=== PATIENT | female | born 1975 | race Two or more races ===

== ENCOUNTER 2022-06-01 20:18 | Inpatient (IN) | payer OTHER ==
[2022-06-01 20:40] VITALS: BMI 16.8
[2022-06-01] MEDS ORDERED: ONDANSETRON *ODT* 4 MG TABLET SL PRN (22:25)
[2022-06-01] MEDS ORDERED: MAGNESIUM HYDROX 2400MG/30ML ORAL SUSPENSION 30 ML CUP PO PRN (22:25)
[2022-06-01] MEDS ORDERED: LOPERAMIDE HCL 2 MG CAPSULE PO PRN (22:25)
[2022-06-01] MEDS ORDERED: guaiFENesin 600 MG TABLET.ER (FP) PO PRN (22:25)
[2022-06-01] MEDS ORDERED: BISMUTH SUBSALICYLATE 524 MG/30 ML PO PRN (22:25)
[2022-06-01] MEDS ORDERED: METHOCARBAMOL 500 MG TABLET PO PRN (22:25)
[2022-06-01] MEDS ORDERED: IBUPROFEN 400 MG TABLET (FP) PO PRN (22:25)
[2022-06-01] MEDS ORDERED: ACETAMINOPHEN 325 MG TABLET (FP) PO PRN (22:25)
[2022-06-01] MEDS ORDERED: NICOTINE 10 MG CARTRIDGE (INHALER) IH PRN (22:25)
[2022-06-01] MEDS ORDERED: IBUPROFEN 600 MG TABLET (FP) PO PRN (22:25)
[2022-06-01] MEDS ORDERED: NALOXONE HCL (KLOXXADO) 8 MG SPRAY NS PRN (22:25)
[2022-06-01] MEDS ORDERED: BENZOCAINE/MENTHOL (CHLORASEPTIC ) LOZENGE MM PRN (22:25)
[2022-06-01] MEDS ORDERED: DICYCLOMINE HCL 10 MG CAPSULE PO PRN (22:25)
[2022-06-01] MEDS ORDERED: POLYETHYLENE GLYCOL (HEALTHYLAX) 3350 17 GM PACKET PO PRN (22:25)
[2022-06-01] MEDS ORDERED: BENZONATATE 200 MG CAPSULE PO PRN (22:25)
[2022-06-01] MEDS ORDERED: MAG HYDROX/AL HYDROX/SIMETH 30 ML UNIT-DOSE CUP PO PRN (22:25)
[2022-06-01] MEDS ORDERED: NALOXONE HCL 0.4 MG/ML VIAL IM PRN (22:25)
[2022-06-01] MEDS ORDERED: LORazepam 1 MG TABLET PO PRN (22:29)
[2022-06-01] MEDS ORDERED: LORazepam 2 MG TABLET ONE (23:06)
[2022-06-01] MEDS: LORazepam 2 MG TABLET PO SCH (23:12)
[2022-06-02] MEDS: LORazepam 2 MG TABLET PO SCH ×4 (06:21→22:11)
[2022-06-02] MEDS: PRENATAL VITAMINS W/ FOLIC ACID TABLET (FP) PO SCH (10:09)
[2022-06-02] MEDS: NICOTINE 14 MG/24 HOURS TOPICAL PATCH TD SCH (10:10)
[2022-06-02 11:17] LABS: ALBUMIN 3.4 g/dl (3.4-5.0); CALCIUM 9.6 mg/dL (8.5-10.1)
[2022-06-02 11:21] LABS: CREATININE 0.5 mg/dL (0.55-1.3); HEMATOCRIT 39.7 % (32.4-45.2); HEMOGLOBIN 13.5 GM/dL (10.7-15.3); MCH 30.7 pg (25.7-33.7); MEAN CELL VOLUME 90.3 fl (80-96); MEAN PLT VOLUME 8.9 fl (7.5-11.1); PLATELET COUNT 247 10^3/uL (134-434); WHITE BLOOD COUNT 5.1 K/mm3 (4.0-10.0)
[2022-06-02 11:22] LABS: BILIRUBIN,TOTAL 1.1 mg/dL (0.2-1); TOT PROT 7.4 g/dl (6.4-8.2)
[2022-06-02] MEDS ORDERED: THIAMINE HCL 100 MG TABLET (FP) PO SCH (22:00)
[2022-06-02] MEDS ORDERED: MELATONIN 5 MG TABLETS PO SCH (22:00)
[2022-06-03] MEDS: LORazepam 1 MG TABLET PO SCH ×2 (05:39→10:49)
[2022-06-03 08:48] VITALS: RESP 18
[2022-06-03] MEDS: NICOTINE 14 MG/24 HOURS TOPICAL PATCH TD SCH (10:50)
[2022-06-03] MEDS: PRENATAL VITAMINS W/ FOLIC ACID TABLET (FP) PO SCH (10:50)
[2022-06-03 12:09] VITALS: BP 128/84; PULSE 86; TEMP 97.7
[2022-06-04] MEDS ORDERED: LORazepam 0.5 MG TABLET PO PRN
[2022-06-04] MEDS ORDERED: LORazepam 0.5 MG TABLET PO SCH (05:00)
[2022-06-05] MEDS ORDERED: LORazepam 0.5 MG TABLET PO ONE (05:00)
== END 2022-06-03 12:00 | disposition left against medical advice (07) | DRG 770 ==
LOC: YASAS 20:18 → Y3N 22:46
PROVIDERS: ADMIT Allergy & Immunology; ATTEND Surgery
PROC: HZ2ZZZZ Detoxification Services for Substance Abuse Treatment (ICD-10-PCS; principal; 2022-06-01)
DX: F10.230 Alcohol dependence with withdrawal, uncomplicated (principal); F12.20 Cannabis dependence, uncomplicated; F17.210 Nicotine dependence, cigarettes, uncomplicated; F32.A Depression, unspecified; C50.912 Malignant neoplasm of unspecified site of left female breast; E05.90 Thyrotoxicosis, unspecified without thyrotoxic crisis or storm; K70.0 Alcoholic fatty liver; Z86.69 Personal history of other diseases of the nervous system and sense organs; Z88.0 Allergy status to penicillin
CPT/HCPCS: 36415; 80053; 81025; 85027; 86780; 93005; 93010; C9803-CS; U0003; U0005